=== PATIENT | male | born 1995 | race Caucasian/White ===

== ENCOUNTER 2017-04-09 01:24 | Emergency (ER) | payer OTHER ==
[2017-04-09] MEDS ORDERED: OXYMETAZOLINE NASAL SPRAY (AFRIN) ONE (02:15)
[2017-04-09 03:13] VITALS: BP 148/72
== END 2017-04-09 03:14 | disposition home or self-care (01) ==
LOC: M ED 01:24
DX: R04.0 Epistaxis (principal)

== ENCOUNTER 2018-10-18 21:40 | Emergency (ER) | payer OTHER ==
[~2018-10-18] VITALS: Ht 190.5 cm; Wt 135.0 kg
[2018-10-18 21:41] VITALS: BP 147/76
[2018-10-18] MEDS ORDERED: NORC1TAB4 PO (22:59)
[2018-10-18] MEDS ORDERED: AUGM875T28 PO (22:59)
[2018-10-18] MEDS ORDERED: IBUP-1114 PO (22:59)
[2018-10-18] MEDS ORDERED: AUGMENTIN 875 MG TAB PO ONE (23:00)
[2018-10-18] MEDS ORDERED: KETOROLAC 60 MG/2 ML VIAL (J1885) IM ONE (23:00)
== END 2018-10-18 23:56 | disposition home or self-care (01) ==
LOC: M ED 21:40
DX: K04.7 Periapical abscess without sinus (principal)
CPT/HCPCS: 96372; 99282; J1885

== ENCOUNTER 2019-11-29 05:44 | Emergency (ER) | payer OTHER ==
[~2019-11-29] VITALS: Ht 190.5 cm; Wt 125.0 kg
[2019-11-29 05:44] VITALS: BP 129/74
[~2019-11-29 05:44] MED LIST: AUGM875T28 PO; IBUP-1114 PO; NORC1TAB7 PO
[2019-11-29] MEDS: IBUPROFEN 600 MG TAB PO ONE (06:23)
== END 2019-11-29 06:24 | disposition home or self-care (01) ==
LOC: M ED 05:44
DX: S01.512A Laceration without foreign body of oral cavity, initial encounter (principal); W01.198A Fall on same level from slipping, tripping and stumbling with subsequent striking against other object, initial encounter; Y92.89 Other specified places as the place of occurrence of the external cause; Y93.89 Activity, other specified; Y99.8 Other external cause status

== ENCOUNTER → 2020-12-20 | Outpatient (REF) | payer BC | LOC: M LAB REF 16:35 | PROVIDERS: ATTEND Physician Assistant | DX: B99.8 Other infectious disease (principal) ==

== ENCOUNTER → 2023-01-19 | Outpatient (REF) | payer BC | LOC: M LAB REF 12:42 | PROVIDERS: ATTEND Physician Assistant Medical | DX: J02.9 Acute pharyngitis, unspecified (principal) ==